=== PATIENT | female | born 1965 | race Caucasian/White ===

== ENCOUNTER 2016-02-21 17:58 | Emergency (ER) | payer MEDICAID, OTHER ==
[~2016-02-21] VITALS: Wt 90.0 kg
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
--- NOTE | 2016-02-21 19:43 | RADRPT ---
PROCEDURE: XR Wrist. CLINICAL INDICATION: Right wrist pain TECHNIQUE: AP, lateral and oblique views of the right wrist were performed. COMPARISON: No prior studies are available for comparison. FINDINGS: No evidence of fracture, dislocation, or subluxation is seen. The bones appear well mineralized. The joint spaces are well preserved. There is no significant soft tissue swelling. IMPRESSION: 1. No acute fracture or dislocation. RPTAT: HFN .Devin Schofield MD, Date Time Electronically viewed and signed by .Devin Schofield MD, on 02/21/2016 19:43 .N/
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
--- NOTE | 2016-02-21 19:45 | RADRPT ---
PROCEDURE: XR Hand. CLINICAL INDICATION: Right hand pain. TECHNIQUE: Three views of the right hand were obtained. COMPARISON: No prior studies are available for comparison. FINDINGS: No acute fracture or dislocation is noted. Minimal scattered degenerative changes are noted. Bone mineralization is normal. No significant soft tissue swelling is seen. IMPRESSION: 1. No acute fracture or dislocation is seen. 2. Minimal degenerative changes. RPTAT: HFN .Devin Schofield MD, MD Date Time Electronically viewed and signed by .Devin Schofield MD, on 02/21/2016 19:45 .N/
[2016-02-21] MEDS ORDERED: ULT50 PO (19:51)
[2016-02-21] MEDS ORDERED: IBUP-1542 PO (19:51)
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
== END 2016-02-21 20:13 | disposition home or self-care (01) ==
LOC: FTE 17:58
DX: S60.211A Contusion of right wrist, initial encounter (principal); R07.89 Other chest pain; V49.40XA Driver injured in collision with unspecified motor vehicles in traffic accident, initial encounter
CPT/HCPCS: 71010; 93005